=== PATIENT | female | born 1955 | race Caucasian/White ===

== ENCOUNTER 2019-02-28 10:23 | Emergency (ER) | payer OTHER ==
--- NOTE | 2019-02-28 11:10 | EDM.PDOC ---
ED HPI GENERAL MEDICAL PROBLEM - General Chief Complaint: Lower Extremity Injury/Pain Stated Complaint: LEG RED AND SWOLLEN Time Seen by Provider: 02/28/19 11:05 Source of Information: Reports: Patient, Family (spouse) History Limitations: Reports: No Limitations - History of Present Illness INITIAL COMMENTS - FREE TEXT/NARRATIVE: 63-year-old female presents to the ED for evaluation of swollen somewhat painful left lower extremity. Patient states she flew here yesterday from [place] where they were resigned. [place] the airplane. She reports this morning she appreciated pain and swelling and perhaps slight discoloration of the left lower extremity as compared to her normal. He is quite active in the workplace day and does daily stretches and today could not do any squatting. No past history of DVT. Brother recently diagnosed with a DVT. She denies any shortness of breath pleuritic chest pain or cough. No hemoptysis. Not taking any hormone supplements. Onset: Today Onset Date: 02/28/19 Duration: Hour(s): (Appreciated since she awoke this morning.) Location: Reports: Lower Extremity, Left (Left lower extremity below the knee swelling with increased firmness of the leg without definite edema.) Quality: Reports: Ache Severity: Mild Improves with: Reports: None Worsens with: Reports: None Context: Reports: Other (Recent air flight from [place] to [facility] to [place] yesterday.). Denies: Activity, Exercise, Lifting, Sick Contact, Trauma Associated Symptoms: Reports: No Other Symptoms Treatments [employer]ER: Reports: Other (see below) (None.) Left Lower Leg Pain Score (Numeric/FACES): 5 - Related Data Allergies Allergy/AdvReac Type Severity Reaction Status Date / Time aspirin Allergy Hives Verified 02/28/19 10:40 naproxen [From Aleve] Allergy Hives Verified 02/28/19 10:40 Home Meds: Home Meds Lisinopril/Hydrochlorothiazide [Lisinopril-HCTZ 10-12.5 MG] 1 tab PO DAILY 02/28 [History] Rivaroxaban [Xarelto] 15 mg PO BID #42 tablet 02/28/19 [Rx] Past Medical History Cardiovascular History: Reports: Hypertension Gastrointestinal History: Reports: Irritable Bowel Syndrome Social & Family History - Tobacco Use Smoking Status *Q: Never Smoker - Recreational Drug Use Recreational Drug Use: No - Living Situation & Occupation Living situation: Reports: Occupation: Employed Review of Systems - Review of Systems Review Of Systems: See Below Constitutional: Denies: Chills, Diaphoresis, Fever, Weakness, Other Eyes: Reports: Glasses Ears: Reports: No Symptoms Nose: Reports: No Symptoms Mouth/Throat: Reports: No Symptoms Respiratory: Reports: No Symptoms Cardiovascular: Reports: No Symptoms GI/Abdominal: Reports: No Symptoms Genitourinary: Reports: No Symptoms Musculoskeletal: Reports: Leg Pain (Left lower extremity pain in particular in the calf musculature.) Skin: Reports: Other (Appreciates slight erythema and changing color to the left lower extremity compared to the right.) Neurological: Reports: No Symptoms Psychiatric: Reports: No Symptoms ED EXAM, GENERAL - Physical Exam Exam: See Below Exam Limited By: No Limitations General Appearance: Alert, WD/WN, No Apparent Distress, Other (Vital signs show temperature 36.8. Pulse 73 and sinus respiratory 16 BP slightly elevated 159/ 84. Pulse ox 98% on room air.) Respiratory/Chest: No Respiratory Distress, Lungs Clear, Normal Breath Sounds, No Accessory Muscle Use, Chest Non-Tender Cardiovascular: Normal Peripheral Pulses, Regular Rate, Rhythm, No Edema, No Gallop, No Murmur, No Rub Peripheral Pulses: 3+: Posterior Tibial (L), Posterior Tibial (R), Dorsalis Pedis (L), Dorsalis Pedis (R) GI/Abdominal: Normal Bowel Sounds, Soft, Non-Tender, No Organomegaly, No Abnormal Bruit, No Mass, Pelvis Stable, Other (No inguinal adenopathy or swelling.) Back Exam: Normal Inspection, Full Range of Motion. No: CVA Tenderness (L), CVA Tenderness (R) Extremities: Normal Inspection, Normal Range of Motion, No Pedal Edema, Other ( Left leg is much more taut than the right. There is some tenderness to palpation popliteal fossa and posterior midline of the calf. Good strong pulses to the foot. The color perhaps is slightly more erythematous but only ever so slightly.) Neurological: Alert, Oriented ( Full unopposed range of motion negative Homans sign), CN II-XII Intact, Normal Cognition, Normal Gait Psychiatric: Normal Affect, Normal Mood Skin Exam: Warm, Dry, Intact, Normal Color, No Rash Course - Vital Signs Last Recorded V/S: Last Vital Signs Temp 36.8 C 02/28/19 10:39 Pulse 73 02/28/19 10:39 Resp 16 02/28/19 10:39 BP 159/84 H 02/28/19 10:39 Pulse Ox 98 02/28/19 10:39 - Orders/Labs/Meds Labs: Laboratory Tests 02/28/19 02/28/19 02/28/19 Range/Units 11:17 11:17 11:17 WBC 6.03 (3.98-10.04) K/mm3 RBC 4.25 (3.98-5.22) M/mm3 Hgb 13.4 (11.2-15.7) gm/dl Hct 38.5 (34.1-44.9) % MCV 90.6 (79.4-94.8) fl MCH 31.5 (25.6-32.2) pg MCHC 34.8 (32.2-35.5) g/dl RDW Std Deviation 40.5 (36.4-46.3) fL Plt Count 197 (182-369) K/mm3 MPV 9.3 L (9.4-12.3) fl Neut % (Auto) 63.7 (34.0-71.1) % Lymph % (Auto) 22.9 (19.3-51.7) % Bullitt % (Auto) 10.4 (4.7-12.5) % Eos % (Auto) 2.7 (0.7-5.8) Baso % (Auto) 0.3 (0.1-1.2) % Neut # (Auto) 3.84 (1.56-6.13) K/mm3 Lymph # (Auto) 1.38 (1.18-3.74) K/mm3 Bullitt # (Auto) 0.63 H (0.24-0.36) K/mm3 Eos # (Auto) 0.16 (0.04-0.36) K/mm3 Baso # (Auto) 0.02 (0.01-0.08) K/mm3 Manual Slide Review Normal smear PT 10.3 (9.7-12.0) SECONDS INR 0.94 APTT 23 (22-31) SECONDS D-Dimer, Quantitative 0.26 (0.19-0.50) mg/L Sodium 140 (136-145) mEq/L Potassium 3.8 (3.5-5.1) mEq/L Chloride 104 (98-107) mEq/L Carbon Dioxide 29 (21-32) mEq/L Anion Gap 10.8 (5-15) BUN 26 H (7-18) mg/dL Creatinine 1.0 (0.55-1.02) mg/dL Est Cr Clr Drug Dosing 53.16 mL/min Estimated GFR (MDRD) 56 (>60) mL/min BUN/Creatinine Ratio 26.0 H (14-18) Glucose 109 (80-115) mg/dL Calcium 9.3 (8.5-10.1) mg/dL Total Bilirubin 0.5 (0.2-1.0) mg/dL AST 13 L (15-37) U/L ALT 30 (14-59) U/L Alkaline Phosphatase 76 (46-116) U/L Total Protein 6.9 (6.4-8.2) g/dl Albumin 3.9 (3.4-5.0) g/dl Globulin 3.0 gm/dL Albumin/Globulin Ratio 1.3 (1-2) - Radiology Interpretation Free Text/Narrative:: 63-year-old female presents to the ED for evaluation of possible DVT left lower extremity after a prolonged flight yesterday. She has never had a history of DVT. She awoke this morning and found her left leg to be much more swollen than normal. On exam there is no edema the tissue seemed to be taut throughout the entire leg or to the right. There is a fullness in the popliteal fossa and in the center of the calf. Negative Homans sign. Plan routine labs including a d- dimer. Doppler Ultrasound of the lower extremity to be done. - Re-Assessments/Exams Free Text/Narrative Re-Assessment/Exam: 02/28/19 11:45 Labs reveal a normal white count at 6.03. Auto differential shows 63.7% neutrophils. Hemoglobin is 13.4 and hematocrit of 38.5. Platelet count 197,000. 02/28/19 12:25 PT is 10.3 with an INR of 0.94. PTT is 23 with a d-dimer of 0.26. Chemistry is normal other than slightly elevated BUN of 26. Creatinine is 1.0. Glucose is 109. BUN/creatinine ratio is elevated at 26 indicating she is little bit volume depleted. Liver function is normal. Doppler ultrasound left lower extremity has been completed. On my assessment I suspect there is clot within the posterior tibial arterial circulation.. Awaiting radiology report. 02/28/19 12:59 I still do not have a formal report but with [facility] I was able to read the radiologist's report and he agrees that there is early DVT in the posterior tibial artery in her calf. She will therefore be started on Xarelto 15mg po BID for 3 weeks then 20mg once daily x 3 more weeks. Genetic testing for hyper coagulability was not done here since she is from [place] and the results would not the elbow for about a week. She was therefore advised that she will require hematology testing for protein C, protein S, thrombin 3 levels , Von Leiden factor mutation or deficiency and Cardiolipin antibodies. She will elevate the leg is much as possible for the next couple of days. Departure - Departure Time of Disposition: 13:18 Disposition: Home, Self-Care 01 Condition: Fair Clinical Impression: DVT (deep venous thrombosis) Qualifiers: DVT location: lower extremity Affected thrombotic vein of extremity: unspecified lower extremity distal vein Chronicity: acute Laterality: left Qualified Code(s): I82.4Z2 - Acute embolism and thrombosis of unspecified deep veins of left distal lower extremity - Discharge Information *PRESCRIPTION DRUG MONITORING PROGRAM REVIEWED*: Not Applicable *COPY OF PRESCRIPTION DRUG MONITORING REPORT IN PATIENT DYLAN: Not Applicable Prescriptions: Rivaroxaban [Xarelto] 15 mg PO BID #42 tablet Instructions: Bleeding Precautions When on Anticoagulant Therapy, Adult, Deep Vein Thrombosis Referrals: PCP,Not In Area [Primary Care Provider] - Forms: ED Department Discharge Additional Instructions: Evaluation the emergency room this morning in regards to painful swollen left lower extremity that occurred suddenly overnight. Travel by airplane from [place] yesterday. Examination reveals the left leg to be much larger than the right half and the tissue was talked as if it is full of fluid. Also got a slightly different color to it. The blood test for deep vein thrombosis called a d-dimer proved to be negative. However Doppler ultrasound of the left lower extremity reveals blood clot in the posterior tibial artery which is behind the knee and the posterior aspect of the leg and is the most common vein occluded. The amount of thrombus or clot in the vein is considered to be quite mild. However it still potentially serious and desires treatment with blood thinners. You are to therefore start Xarelto 15 mg twice daily for the next 3 weeks and then increase to 20 mg once daily for another 3 weeks to complete 6 weeks of treatment. After this you need genetic testing done on your lab test to see if you have a hypercoagulable state that would aching much more prone to developing further clotting processes and sometimes would leave you on blood thinners chronically. Especially since she mentioned her brother was recently diagnosed with a blood clot. Minute is heat to the area for pain relief elevate the foot as much as possible when not walking. Try tonsil walk or run or do excessive exercises for the next 3 days until the clot is no longer propagating. Return to the ED if you suddenly developed shortness of breath sharp stabbing chest pain or cough up any blood. Follow-up with your personal care physician when you get home
--- NOTE | 2019-02-28 13:06 | US ---
Left lower extremity deep venous ultrasound: Duplex and color flow imaging were obtained of the left common femoral, proximal greater saphenous, superficial femoral, popliteal, posterior tibial and peroneal veins. Right common femoral vein is also evaluated. Findings: Lack of phasic flow, augmentation and compression are seen within the mid to distal left posterior tibial vein. Proximal portion of the posterior tibial vein appears to be patent. Other veins show normal phasic flow, augmentation and compression. Impression: 1. Mild amount of venous thrombosis within the mid and distal posterior tibial vein on the left side. 2. No other findings of deep venous thrombosis seen within the left lower extremity right common femoral vein. Diagnostic code #3
== END 2019-02-28 13:38 | disposition home or self-care (01) ==
LOC: JD.ED 10:23
DX: I82.4Z2 Acute embolism and thrombosis of unspecified deep veins of left distal lower extremity (principal); I10 Essential (primary) hypertension; Z79.899 Other long term (current) drug therapy
CPT/HCPCS: 36415; 80053; 85025; 85379; 85610; 85730; 93971-26-LT; 93971-LT; 99284-25